=== PATIENT | female | born 1990 | race Caucasian/White ===

== ENCOUNTER 2018-10-13 16:19 | Emergency (ER) | payer OTHER, SELFPAY ==
[2018-10-13 16:45] VITALS: BP 122/73; PULSE 90; RESP 18; TEMP 37.2; O2SAT 100; BMI 22.7
--- NOTE | 2018-10-13 18:44 | ED_ITS ---
HPI - Back Pain/Injury <BOUBACAR Kim - Last Filed: 10/13/18 22:13> General Chief Complaint: Back Pain/Injury Stated Complaint: hurt back a week ago,lwr right side,cant feel toes Time Seen by Provider: 10/13/18 18:43 Source: patient Mode of arrival: ambulatory Limitations: no limitations History of Present Illness HPI Narrative: 28-year-old healthy female does a nonsmoker here for complaint of pain to her right lower back over the past few days. She also reports that she has discomfort and some tingling that radiates down into her right lower extremity. She is ambulatory into the emergency room today. She denies any loss of bladder or bowel control. She states that the pain into the right back started when she was doing sprints and reached down to touch the ground to turn around to returns present. she states she has been using heat and Tylenol as needed for the discomfort. She denies any trauma to the lower back. She reports increased pain with motion of the lower back. No other complaints at this time. Related Data Home Medications Medication Instructions Recorded Confirmed [PROBIOTICS] #0 06/29/16 Previous Rx's Medication Instructions Recorded cyclobenzaprine 10 mg PO Q8HP PRN #20 tab 06/29/16 naproxen 500 mg PO Q12HP PRN #20 tab 06/29/16 cyclobenzaprine 10 mg PO TID PRN #20 tab 10/13/18 prednisone 40 mg PO DAILY #8 tab 10/13/18 Allergies Allergy/AdvReac Type Severity Reaction Status Date / Time latex Allergy Verified 10/13/18 16:54 Review of Systems <BOUBACAR Kim - Last Filed: 10/13/18 22:13> Constitutional Denies chills, Denies fever(s), Denies lethargy and Denies weakness Eyes Denies change in vision, Denies eye discharge, Denies irritation and Denies loss of vision ENT Ears, Nose, Mouth, and Throat: Denies change in voice, Denies neck pain and Denies sore throat Cardiovascular Denies chest pain, Denies irregular heart rhythm, Denies lightheadedness, Denies palpitations, Denies dyspnea, Denies dyspnea on exertion and Denies orthopnea Respiratory Denies cough, Denies dyspnea, Denies dyspnea on exertion and Denies wheezing Gastrointestinal Gastrointestinal: Denies abdominal pain, Denies change in bowel habits, Denies diarrhea, Denies nausea and Denies vomiting Genitourinary Denies hematuria, Denies flank pain, Denies urinary incontinence and Denies urinary urgency Musculoskeletal Denies neck pain Comments: Back pain Integumentary/Breasts Denies pruritus, Denies erythema, Denies rash and Denies wounds Neurologic Denies confusion, Denies loss of vision and Denies weakness Psychiatric Denies anxiety, Denies confusion, Denies depression, Denies homicidal ideation and Denies suicidal ideation Endocrine Denies palpitations Hematologic/Lymphatic Denies easy bruising Allergic/Immunologic Denies wheezing Exam <BOBUACAR Kim - Last Filed: 10/13/18 22:13> Initial Vital Signs Initial Vital Signs: Vital Signs Temperature 99 F 10/13/18 16:45 Pulse Rate 90 10/13/18 16:45 Respiratory Rate 18 10/13/18 16:45 Blood Pressure 122/73 10/13/18 16:45 Pulse Oximetry 100 10/13/18 16:45 Const General: cooperative and well developed Nutritional Appearance: well nourished Orientation: alert, awake, oriented x3 and not confused [facility] Mouth: oral mucosae normal and moist mucous membranes Eyes Conjunctivae: conjunctivae normal Sclera: sclerae normal Pupils: PERRL EOM: EOM intact bilaterally Chest Chest: normal inspection of the chest Resp Effort & Inspection: normal respiratory effort, able to speak in complete sentences, no respiratory distress and no use of accessory muscles Auscultation: clear to auscultation bilaterally, no rales, no rhonchi and no wheezes Cardio Rate: regular rate Rhythm: regular rhythm Heart Sounds: no click, no gallops, no murmurs and no rubs Pulses: normal peripheral pulses Back/Spine/Pelvis Thoracic/Lumbar Spine: thoracic and lumbar spine normal to inspection, paraspinal tenderness, No thoracic spinal tenderness, No lumbar spinal tenderness and straight leg raise positive Skin General: no rashes or lesions noted, No jaundice and No petechiae Neuro General: alert, oriented x3, gait normal and no focal motor deficits Speech: speech normal Extrem Other: Sensation and range of motion is intact to bilateral lower extremities. Distal pulses intact to bilateral lower extremity <Floyd Mcbride DO - Last Filed: 10/14/18 03:47> Initial Vital Signs Initial Vital Signs: Vital Signs Temperature 99 F 10/13/18 16:45 Pulse Rate 90 10/13/18 16:45 Respiratory Rate 18 10/13/18 16:45 Blood Pressure 122/73 10/13/18 16:45 Pulse Oximetry 100 10/13/18 16:45 Course <BOUBACAR Kim - Last Filed: 10/13/18 22:13> Orders Ordered: Discontinued Medications Cyclobenzaprine HCl (Flexeril) 10 mg PO NOW ONE Stop: 10/13/18 19:51 Last Admin: 10/13/18 19:52 Dose: 10 mg Prednisone (Deltasone) 40 mg PO NOW ONE Stop: 10/13/18 19:51 Last Admin: 10/13/18 19:52 Dose: 40 mg Vital Signs - 8 hr 10/13/18 16:45 10/13/18 19:06 Temperature 99 F Pulse Rate 90 90 Respiratory Rate 18 18 Blood Pressure 122/73 Blood Pressure [Right Arm] 138/53 L Pulse Oximetry 100 100 <Floyd Mcbride DO - Last Filed: 10/14/18 03:47> Orders Ordered: Discontinued Medications Cyclobenzaprine HCl (Flexeril) 10 mg PO NOW ONE Stop: 10/13/18 19:51 Last Admin: 10/13/18 19:52 Dose: 10 mg Prednisone (Deltasone) 40 mg PO NOW ONE Stop: 10/13/18 19:51 Last Admin: 10/13/18 19:52 Dose: 40 mg Vital Signs - 8 hr 10/13/18 16:45 10/13/18 19:06 Temperature 99 F Pulse Rate 90 90 Respiratory Rate 18 18 Blood Pressure 122/73 Blood Pressure [Right Arm] 138/53 L Pulse Oximetry 100 100 MDM - Back Pain/Injury <BOUBACAR Kim - Last Filed: 10/13/18 22:13> Lab Data Point of Care Testing Test Results Negative Urine Dip Bedside Urine Glucose Negative Bedside Urine Bilirubin - Negative Bedside Urine Ketone - Negative Urine Specific Alpine 1.015 Bedside Urine Occult Blood - Negative Bedside Urine pH 8.5 Bedside Urine Protein - Negative Bedside Urine Urobilinogen - Negative Bedside Urine Nitrite - Negative Bedside Urine Leukocytes - Negative Esterase MDM Narrative Medical decision making narrative: signs and symptoms presents as right-sided lumbar paraspinal strain with sciatica to the right side. She is prescribed a muscle relaxer cyclobenzaprine to help with muscle spasm. Use [id number] ibuprofen as needed for any discomfort. Heat to painful area 20 min at a time few times a day to help with muscle spasm. Gentle range of motion to painful areas to help keep muscles loose. Short course of prednisone is prescribed to help with inflammation follow up with primary care provider later this week for re-evaluation. For any worsening symptoms return to the emergency room. <Floyd Mcbride DO - Last Filed: 10/14/18 03:47> Lab Data Point of Care Testing Test Results Negative Urine Dip Bedside Urine Glucose Negative Bedside Urine Bilirubin - Negative Bedside Urine Ketone - Negative Urine Specific Alpine 1.015 Bedside Urine Occult Blood - Negative Bedside Urine pH 8.5 Bedside Urine Protein - Negative Bedside Urine Urobilinogen - Negative Bedside Urine Nitrite - Negative Bedside Urine Leukocytes - Negative Esterase Discharge Plan Departure Patient Disposition: Home Clinical Impression: Strain of lumbar region Discharge Date/Time: 10/13/18 19:53 Interventions: ED Discharge Assessment Last Done: 10/13/18 19:53 Instructions: DI for Low Back Pain Activity Restrictions/Additional Instructions: signs and symptoms presents as right-sided lumbar paraspinal strain with sciatica to the right side. You have been prescribed a muscle relaxer cyclobenzaprine to help with muscle spasm and short course of a prednisone a steroid to help with inflammation use as directed. Use [id number] ibuprofen as needed for any discomfort. Heat to painful area 20 min at a time few times a day to help with muscle spasm. Gentle range of motion to painful areas to help keep muscles loose. Follow up with primary care provider later this week for re-evaluation. For any worsening symptoms return to the emergency room. Prescriptions: New cyclobenzaprine 10 mg tablet 10 mg PO TID PRN (Reason: muscle spasm) Qty: 20 RF: 0 prednisone 20 mg tablet 40 mg PO DAILY Qty: 8 RF: 0 No Action [PROBIOTICS] Qty: 0 RF: 0 cyclobenzaprine 10 MG tablet 10 mg PO Q8HP PRNQty: 20 RF: 0 naproxen 500 MG tablet 500 mg PO Q12HP PRNQty: 20 RF: 0 Referrals: [facility] [Provider Group] <Floyd Mcbride DO - Last Filed: 10/14/18 03:47> Cosign ED Attending Cosignature Attestation: I was immediately available in the department for consultation. Documentation has been reviewed. I agree with assessment and plan.
[2018-10-13 19:06] VITALS: BP 138/53; PULSE 90; RESP 18; O2SAT 100
[2018-10-13] MEDS: CYCLOBENZAPRINE 10 MG TABLET PO (19:52)
[2018-10-13] MEDS: predniSONE 20 MG TABLET 40 MG PO (19:52)
== END 2018-10-13 19:53 | disposition home or self-care (01) ==
PROVIDERS: Emergency Provider Nurse Practitioner Family
DX: S39.012A Strain of muscle, fascia and tendon of lower back, initial encounter (principal); X50.1XXA Overexertion from prolonged static or awkward postures, initial encounter
CPT/HCPCS: 81003; 81025; 99282; 99283

== ENCOUNTER → 2018-10-28 16:09 | Outpatient (CLI) | payer OTHER, SELFPAY ==
--- NOTE | 2018-10-28 | DI.US.S_ITS ---
PROCEDURE: US ABDOMEN LIMITED INDICATIONS: MID ABDOMINAL MASS TECHNIQUE: Real-time focused scanning was performed of the abdomen, with image documentation. COMPARISON: None. FINDINGS: A sharply demarcated hypoechoic structure within the subcutaneous fatty soft tissues of the midline abdominal wall above the umbilicus area measures up to 8 x 15 x 17 mm. No elevated internal or marginal blood flow seen. IMPRESSION: Nodule within the subcutaneous fat, above the umbilicus it by approximately 6 cm. A clinical decision is necessary to determine whether surgical excision of this structure is warranted. This could be followed by ultrasound or physical examination. Dictated by: Massimo Zamora M.D. on 10/28/2018 at 17:09 Approved by: Massimo Zamora M.D. on 10/28/2018 at 17:10
== END ==
PROVIDERS: PCP Family Medicine; Visit Provider Family Medicine
DX: R19.05 Periumbilic swelling, mass or lump (principal)
CPT/HCPCS: 76705

== ENCOUNTER → 2018-11-30 14:34 | Outpatient (CLI) | payer OTHER, SELFPAY ==
--- NOTE | 2018-11-30 14:43 | DI.MRI.S_ITS ---
PROCEDURE: MR LUMBAR SPINE WO CON INDICATIONS: LOW BACK PAIN TECHNIQUE: Noncontrast sagittal T1 spin echo and T2 fast echo, sagittal STIR, axial T1 and T2 fast spin echo through the lumbar spine. In cases with scoliosis, additional coronal T2 fast spin echo may be performed. COMPARISON: None. FINDINGS: Image quality: Excellent. Alignment and Curvature: There is trace L5-S1 anterolisthesis. Bone Marrow: Reactive endplate change is noted adjacent to the L4-L5 disc. No acute vertebral body compression fractures. Spinal Cord: Conus medullaris terminates at the T12 level. Visualized cord demonstrates normal signal and size. Paraspinous Soft Tissues: No paravertebral masses. L1-L2: Normal appearance. L2-L3: Normal appearance. L3-L4: Normal appearance. L4-L5: Loss of disc signal. Slight loss of disc height. Mild, diffuse disc bulge. Large central disc protrusion superimposed on diffuse disc bulge. Mild narrowing of the central canal. Mild bilateral neural foraminal narrowing. No neural impingement. L5-S1: Loss of disc signal. Minimal, diffuse disc bulge. No central stenosis. No neural foraminal narrowing. No neural impingement. IMPRESSION: 1. Trace L5-S1 anterolisthesis. Recommend correlation with plain film radiographs including oblique views of the lumbar spine to exclude isthmic spondylolisthesis. 2. Moderate L4-L5 degenerative disc disease. Mild L5-S1 degenerative disc disease. 3. Mild L4-L5 central canal narrowing. 4. Mild bilateral L4-L5 neural foraminal narrowing. 5. No neural impingement. Dictated by: Mayuri Blanco MD, PhD on 12/02/2018 at 8:46 Approved by: Mayuri Blanco MD, PhD on 12/02/2018 at 8:49
== END ==
PROVIDERS: PCP Family Medicine; Visit Provider Family Medicine
DX: M54.5 Low back pain (principal); M51.16 Intervertebral disc disorders with radiculopathy, lumbar region; M51.17 Intervertebral disc disorders with radiculopathy, lumbosacral region; M48.061 Spinal stenosis, lumbar region without neurogenic claudication
CPT/HCPCS: 72148

== ENCOUNTER → 2018-12-14 10:28 | Outpatient (CLI) | payer OTHER, SELFPAY ==
--- NOTE | 2018-12-14 | DI.RAD.S_ITS ---
PROCEDURE: XR LUMBAR SPINE MIN 4V INDICATIONS: ISTHMIC SPONDYLOLISTHESIS TECHNIQUE: 5 views of the lumbar spine were acquired. COMPARISON: None. FINDINGS: Bones: 5 nonrib-bearing vertebrae are present. There is normal bony alignment. No vertebral body compression fractures. No suspicious bony lesions. Soft tissues: Overlying bowel gas pattern is normal. No suspicious soft tissue calcifications. Oblique images: No pars defects. IMPRESSION: No spondylolisthesis or spondylolysis. Dictated by: Ashia Eli M.D. on 12/14/2018 at 11:14 Approved by: Ashia Eli M.D. on 12/14/2018 at 11:15
== END ==
PROVIDERS: PCP Family Medicine; Visit Provider Family Medicine
DX: M43.16 Spondylolisthesis, lumbar region (principal)
CPT/HCPCS: 72110

== ENCOUNTER → 2021-03-17 09:45 | Outpatient (CLI) | payer OTHER, SELFPAY ==
--- NOTE | 2021-03-17 09:46 | DI.US.S_ITS ---
PROCEDURE: US SOFT TISSUE HEAD AND NECK INDICATIONS: ENLARGING GROWTH RIGHT NECK TECHNIQUE: Real-time scanning was performed of the neck region of interest, with image documentation. COMPARISON: None. FINDINGS: Ultrasound examination of right submandibular neck soft tissue shows heterogeneously isoechoic and well-circumscribed solid lesion measures 3.9 x 3.1 x 0.9 cm in size superficial to the submandibular gland and shows internal vascularity. Multiple enlarged right neck soft tissue lymph nodes are seen measures up to 3.7 x 1.5 x 0.7 cm in size. IMPRESSION: 1. Heterogeneously isoechoic and solid appearing mass involving right neck soft tissue anterior to submandibular gland and measures 3.9 x 3.1 x 0.9 cm in size. Finding is suspicious for abnormal enlarged lymph node versus benign or malignant soft tissue mass. Consider biopsy of the nodule for more definitive diagnosis if indicated. 2. Additional enlarged lymph nodes seen in right neck soft tissue as above. Dictated by: Babak Govea M.D. on 03/17/2021 at 13:34 Approved by: Babak Govea M.D. on 03/17/2021 at 13:37
== END ==
PROVIDERS: PCP Family Medicine; Referring Provider Physician Assistant; Visit Provider Physician Assistant
DX: R22.1 Localized swelling, mass and lump, neck (principal)
CPT/HCPCS: 76536

== ENCOUNTER → 2021-04-22 11:50 | Outpatient (CLI) | payer OTHER, SELFPAY ==
[2021-04-22 20:28] LABS: COVID19 - ORCAS (NP or Nasal) Negative (Negative)
== END ==
PROVIDERS: PCP Family Medicine; Visit Provider Family Medicine
DX: Z20.822 Contact with and (suspected) exposure to COVID-19 (principal)
CPT/HCPCS: U0003

== ENCOUNTER → 2024-08-22 11:00 | Outpatient (CLI) | payer OTHER, SELFPAY | PROVIDERS: PCP Family Medicine; Visit Provider Family Medicine | DX: Z39.1 Encounter for care and examination of lactating mother (principal); R10.9 Unspecified abdominal pain | CPT/HCPCS: 87086 ==

== ENCOUNTER → 2024-09-10 11:33 | Outpatient (CLI) | payer OTHER, SELFPAY ==
[2024-09-10 20:54] LABS: TSH w/ Reflex to FT4 0.89 uIU/mL (0.47-4.68)
[2024-09-12 03:42] LABS: Triiodothyronine T3 Total 95 ng/dL (71-180)
== END ==
PROVIDERS: PCP Family Medicine; Visit Provider Family Medicine
DX: R79.89 Other specified abnormal findings of blood chemistry (principal); M25.50 Pain in unspecified joint
CPT/HCPCS: 84443; 84480

== ENCOUNTER → 2024-09-15 10:56 | Outpatient (CLI) | payer OTHER, SELFPAY ==
--- NOTE | 2024-09-15 10:58 | DI.US.S_ITS ---
PROCEDURE: US PELVIC COMPLETE INDICATIONS: PAIN TECHNIQUE: Real-time scanning was performed of the pelvic organs, with image documentation. Additional endovaginal scanning was necessary due to incomplete visualization of the adnexal and endometrial structures by transabdominal scanning. COMPARISON: [facility], US, US OB < 14 WEEKS, 12/09/2021, 14:09. [facility], US, US OB CERVICAL LENGTH + OB TRANSVAG LIMITED, 03/16/2022, 17:37. FINDINGS: Uterus: Uterus is anteverted and normal in size at 7.9 x 3.8 x 5.4 cm. The myometrium is homogeneous. The endometrium measures 6 mm combined thickness. There is a left anterior intramural 1.7 x 1.1 x 1.5 cm fibroid. Ovaries: The right ovary measures 2.1 x 4.0 x 2.2 cm, with a calculated ovarian volume of 9.8 cc. The left ovary measures 2.3 x 3.7 x 1.6 cm, with a calculated ovarian volume of 7.2 cc. The ovaries have a normal sonographic appearance. Less than 12 follicles can be seen in each ovary. No adnexal masses are seen. Other: No pathologic free abdominal or pelvic fluid. IMPRESSION: Left anterior intramural 1.7 cm fibroid. Otherwise, no sonographic abnormality of the uterus or ovaries. We strive to produce accurate, complete, and clear reports of imaging services. To assist us in improving patient care, this report was composed using standard report templates and voice recognition software. Therefore, it may contain abnormal punctuation, insertions and/or omissions. Occasional wrong-word or sound-alike substitutions may occur. Though we review the report and make efforts to correct it, we do recommend that the report be read carefully in proper context to recognize any text inaccuracies. Dictated by: Villa Mason M.D. on 09/15/2024 at 13:21 Approved by: Villa Mason M.D. on 09/15/2024 at 13:51
== END ==
PROVIDERS: PCP Family Medicine; Referring Provider Family Medicine; Visit Provider Family Medicine
DX: D25.1 Intramural leiomyoma of uterus (principal); R10.9 Unspecified abdominal pain; Z39.1 Encounter for care and examination of lactating mother
CPT/HCPCS: 76830; 76856

== ENCOUNTER → 2025-01-14 11:32 | Outpatient (CLI) | payer OTHER, SELFPAY ==
--- NOTE | 2025-01-14 11:33 | DI.MRI.S_ITS ---
PROCEDURE: MR LUMBAR SPINE WO CON INDICATIONS: persistent pain despite steroid taper and Physical therapy TECHNIQUE: Noncontrast sagittal T1 spin echo and T2 fast echo, sagittal STIR, and T2 fast spin echo through the lumbar spine. In cases with scoliosis, additional coronal T2 fast spin echo may be performed. COMPARISON: [facility], MR, MR LUMBAR SPINE WO CON, 11/30/2018, 14:40. FINDINGS: Image quality: Excellent. Alignment and Curvature: Trace anterolisthesis of L5 on S1.. Bone Marrow: L4-5 degenerative endplate changes. Marrow is of normal overall signal. No acute vertebral body compression fractures. Spinal Cord: Conus medullaris terminates at the L1 level. Visualized cord demonstrates normal signal and size. Paraspinous Soft Tissues: No paravertebral masses. T12-L1: Normal appearance. L1-L2: Normal appearance. L2-L3: Normal appearance. L3-L4: Small central disc protrusion. No central canal or neural foraminal stenosis. L4-L5: Disc desiccation and mild height loss. Mild diffuse disc bulge. Resolution of prior central disc protrusion. New left subarticular disc extrusion resulting in severe narrowing of the left lateral recess and impingement of the descending left L5 nerve root. No central canal or neural foraminal stenosis. L5-S1: Disc desiccation and mild height loss. Small central disc protrusion with posterior annular tear. No central canal or neural foraminal stenosis. IMPRESSION: 1. New left subarticular disc extrusion at L4-5 resulting in severe narrowing of the left lateral recess and impingement of the descending left L5 nerve root. 2. More mild degenerative changes are seen at other levels, as described above. Dictated by: Barrington Sharp M.D. on 01/14/2025 at 14:32 Approved by: Barrington Sharp M.D. on 01/14/2025 at 15:25
== END ==
PROVIDERS: PCP Family Medicine; Referring Provider Family Medicine; Visit Provider Family Medicine
DX: M51.16 Intervertebral disc disorders with radiculopathy, lumbar region (principal); M47.26 Other spondylosis with radiculopathy, lumbar region
CPT/HCPCS: 72148

== ENCOUNTER → 2025-03-12 13:06 | Outpatient (CLI) | payer OTHER, SELFPAY ==
[2025-03-12 19:47] LABS: Hematocrit 40.9 % (36-46); Hemoglobin 14.1 g/dL (12.0-16.0); Mean Corpuscular HGB Conc 34.4 % (30-36); Mean Corpuscular Hemoglobin 30.1 PG (26-34); Mean Corpuscular Volume 87.4 fL (80-100); Platelet Count 247 X10^3/uL (150-400); Red Blood Cell Count 4.67 X10^6/uL (4.0-5.2); Red Cell Distribution Width 12.6 % (11.6-14.8); White Blood Cell Count 7.6 X10^3/uL (4.5-11.0)
[2025-03-12 19:54] LABS: Alanine Aminotransferase 20 IU/L (<35); Albumin 4.8 g/dL (3.5-5.0); Albumin Globulin Ratio 1.7 (1.0-2.8); Alkaline Phosphatase 89 U/L (38-126); Aspartate Aminotransferase 30 IU/L (14-36); BUN Creatinine Ratio 15.6 (6-22); Bilirubin Total 0.7 mg/dL (0.2-1.3); Blood Urea Nitrogen 10 mg/dL (7-17); Calcium 9.8 mg/dL (8.4-10.2); Carbon Dioxide 23 mmol/L (22-32); Chloride 104 mmol/L (98-107); Estimated Glomerular Filt Rate > 60 mL/min (>60); Globulin 2.8 g/dL (1.7-4.1); Glucose 85 mg/dL (70-99); HEMOLYSIS 20 (0-50); Potassium 4.5 mmol/L (3.4-5.1); Sodium 137 mmol/L (137-145); Total Protein 7.6 g/dL (6.3-8.2)
[2025-03-12 20:00] LABS: Iron 81 ug/dL (37-170)
[2025-03-12 20:29] LABS: Thyroid Stimulating Hormone 0.223 uIU/mL (0.47-4.68)
[2025-03-12 20:30] LABS: Ferritin 48 ng/mL (6-137)
== END ==
PROVIDERS: PCP Family Medicine; Visit Provider Family Medicine
DX: R00.0 Tachycardia, unspecified (principal); Z86.2 Personal history of diseases of the blood and blood-forming organs and certain disorders involving the immune mechanism; R25.2 Cramp and spasm
CPT/HCPCS: 80053; 82728; 83540; 84443; 85027